=== PATIENT | male | born 1940 | race Caucasian/White ===

== ENCOUNTER → 2020-04-11 | Outpatient (CLI) | payer MEDICARE ==
[2020-04-11 10:40] LABS: BUN/CREATININE RATIO 15; CALCIUM 9.2 MG/DL (8.5-10.1); CARBON DIOXIDE 28 MMOL/L (21-32); CHLORIDE 97 MMOL/L (98-107); CREATININE SERUM 0.73 MG/DL (0.60-1.30); GFR ESTIMATED > 60; GLUCOSE 88 MG/DL (70-105); POTASSIUM 4.5 MMOL/L (3.6-5.0); SODIUM 132 MMOL/L (135-145)
== END ==
LOC: LAB FS 09:09 → EDBD 09:09
PROVIDERS: ATTEND Urology
DX: N40.1 Benign prostatic hyperplasia with lower urinary tract symptoms (principal)
CPT/HCPCS: 36415; 80048; 84153

== ENCOUNTER → 2021-04-24 | Outpatient (CLI) | payer MEDICARE ==
[2021-04-24 10:13] LABS: CALCIUM 9.6 MG/DL (8.5-10.1); CREATININE SERUM 0.74 MG/DL (0.60-1.30); POTASSIUM 4.3 MMOL/L (3.6-5.0)
== END ==
LOC: LAB FS 09:11
PROVIDERS: ATTEND Urology
DX: N40.1 Benign prostatic hyperplasia with lower urinary tract symptoms (principal); N32.81 Overactive bladder
CPT/HCPCS: 36415; 80048; 84153

== ENCOUNTER 2022-06-05 12:45 | Emergency (ER) | payer MEDICARE ==
--- NOTE | 2022-06-05 13:36 | Diagnostic Imaging Report ---
PROCEDURE: CT head and maxillofacial without contrast. TECHNIQUE: Multiple contiguous axial images were obtained through the head and facial bones without the use of intravenous contrast. Auto Exposure Controls were utilized during the CT exam to meet ALARA standards for radiation dose reduction. INDICATION: Pain in the right eye. 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 COMPARISON: None. FINDINGS: CT HEAD: The ventricles and cortical sulci are age-appropriate. There is no midline shift or mass-effect. No acute intracranial hemorrhage is seen. There is no CT evidence of acute territorial ischemia. No focal masses or collections are present. The calvarium is intact. CT FACE: No acute facial fractures are visualized. The mandible, zygomatic arches, and pterygoid plates are intact. The bilateral TMJ demonstrate normal articulation. No nasal bone fractures. The bony nasal septum is slightly deviated to the right without fracture. Frothy secretions are seen in the bilateral maxillary sinuses with additional mucosal thickening in the bilateral ethmoid and sphenoid sinuses. The mastoid air cells are well pneumatized. Post treatment changes are seen in the right globe with scleral banding and dense material throughout the globe. The left globe is unremarkable. No post septal inflammation is seen in the orbits. No evidence of orbital rim fracture. IMPRESSION: 1. No hemorrhage or focal intra-axial mass. No CT evidence of large acute territorial ischemia. 2. No acute facial fractures. 3. Findings suggestive of acute sinusitis. 4. Post treatment changes in the right globe, consistent with the history of prior retinal detachment. Dictated by: Dictated on workstation # [id number]
--- NOTE | 2022-06-05 13:47 | ED EENT ---
History of Present Illness General Chief Complaint: Eye Problems Stated Complaint: RT EYE PAIN; NAUSEA Source: patient History of Present Illness Date Seen by Provider: Jun 05, 2022 Time Seen by Provider: 13:00 Initial Comments 81-year-old male presenting by private vehicle with concerns for right-sided headache. He states that he has a chronic infection and is taking tobramycin dexamethasone eyedrops for that. He follows with Dr. Angeles with eye clinic. He has had generalized weakness and had severe pain behind his right eye that came on when he was in the shower. He did get a little bit of water and shampoo into his eye but has never had severe stabbing pain behind his eye like this. 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 He denies having any dizziness, fever, abdominal pain, diarrhea, pain with urination. He states that his mouth is always dry and he is always thirsty. He was concerned for a possible stroke with his general weakness and right sided pain behind his eyes. He had called EMS and they evaluated him and he decided not to come by ambulance but went to urgent care to be seen. They had told him he needed to come to the emergency department for CT scan as he might be having a stroke. He had tried taking 600 mg of ibuprofen and it was not helping much with his pain so again he got evaluated. He has had some chills but no fever. Timing/Duration: abrupt Severity: severe Location: eye (R) Prearrival Treatment: over the counter meds Modifying Factors: Worse With Activity Associated Symptoms: No change in hearing; cough (Chronic and intermittent from drainage down his throat); No drooling, No ear drainage; facial pain/swelling; No fever; malaise, nasal congestion/drainage; No poor fluid intake, No poor solids intake, No sinus infection, No sore throat, No tooth pain, No voice change Allergies and Home Medications Allergies Coded Allergies: No Known Drug Allergies (Unverified , 06/05/22) Patient Home Medication List Home Medication List Reviewed: Yes Amoxicillin/Potassium Clav (Amox Tr-K Clv 875-125 mg Tab) 875 Mg-125 Mg Tablet, 1 EACH PO BID Prescribed by: SHA IBRAHIM on 06/05/22 1430 Prednisone (Prednisone) 20 Mg Tab, 40 MG PO DAILY Prescribed by: SHA IBRAHIM on 06/05/22 1430 Review of Systems Review of Systems Constitutional: chills; No fever Eyes: See HPI Ears: Denies Dizziness, Denies Pain Nose: congestion Mouth: no symptoms reported Throat: no symptoms reported Respiratory: see HPI Cardiovascular: no symptoms reported Gastrointestinal: see HPI Musculoskeletal: no symptoms reported Skin: no symptoms reported Neurological: Headache (Behind right eye and over the right frontal sinus) Past Zwlkwwh-Iwajdy-Lsajci Hx Patient Social History Tobacco Use?: No Use of E-Cig and/or Vaping dev: No Substance use?: No Alcohol Use?: No Pt feels they are or have been: No Immunizations Up To Date Influenza Vaccine Up-to-Date: Yes; Up-to-Date First/Initial COVID19 Vaccinat: YES Second COVID19 Vaccination [place]: YES Past Medical History Surgery/Hospitalization HX: HTN; High Cholesterol; 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 oz. 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, no motor/sensory deficits, alert, oriented x 3 Skin: normal color, warm/dry Progress/Results/Core Measures Results/Orders Lab Results Laboratory Tests Test 06/05/22 13:05 06/05/22 13:09 Range/Units Urine Color YELLOW Urine Clarity CLEAR Urine pH 7.5 5-9 Urine Specific [place] 1.015 L 1.016-1.022 Urine Protein NEGATIVE NEGATIVE Urine Glucose (UA) TRACE H NEGATIVE Urine Ketones NEGATIVE NEGATIVE Urine Nitrite NEGATIVE NEGATIVE Urine Bilirubin NEGATIVE NEGATIVE Urine Urobilinogen 0.2 < = 1.0 MG/DL Urine Leukocyte Esterase NEGATIVE NEGATIVE Urine RBC (Auto) NEGATIVE NEGATIVE Urine RBC NONE /HPF Urine WBC NONE /HPF Urine Squamous Epithelial Cells RARE /HPF Urine Crystals PRESENT H /LPF Urine Amorphous Sediment FEW CANDIS PHOSPHATE H /LPF Urine Bacteria NEGATIVE /HPF Urine Casts NONE /LPF Urine Mucus NEGATIVE /LPF Urine Culture Indicated NO White Blood Count 10.9 4.3-11.0 10^3/uL Red Blood Count 4.03 L 4.30-5.52 10^6/uL Hemoglobin 12.8 L 13.3-17.7 g/dL Hematocrit 36 L 40-54 % Mean Corpuscular Volume 90 80-99 fL Mean Corpuscular Hemoglobin 32 25-34 pg Mean Corpuscular Hemoglobin Concent 36 32-36 g/dL Red Cell Distribution Width 12.2 10.0-14.5 % Platelet Count 267 130-400 10^3/uL Mean Platelet Volume 9.8 9.0-12.2 fL Immature Granulocyte % (Auto) 0 % Neutrophils (%) (Auto) 88 H 42-75 % Lymphocytes (%) (Auto) 6 L 12-44 % Monocytes (%) (Auto) 6 0-12 % Eosinophils (%) (Auto) 0 0-10 % Basophils (%) (Auto) 0 0-10 % Neutrophils # (Auto) 9.6 H 1.8-7.8 10^3/uL Lymphocytes # (Auto) 0.6 L 1.0-4.0 10^3/uL Monocytes # (Auto) 0.6 0.0-1.0 10^3/uL Eosinophils # (Auto) 0.0 0.0-0.3 10^3/uL Basophils # (Auto) 0.0 0.0-0.1 10^3/uL Immature Granulocyte # (Auto) 0.0 0.0-0.1 10^3/uL Neutrophils % (Manual) 92 % Lymphocytes % (Manual) 6 % Monocytes % (Manual) 2 % Eosinophils % (Manual) 0 % Basophils % (Manual) 0 % Band Neutrophils 0 % Sodium Level 126 L 135-145 MMOL/L Potassium Level 3.5 L 3.6-5.0 MMOL/L Chloride Level 90 L 98-107 MMOL/L Carbon Dioxide Level 25 21-32 MMOL/L Anion Gap 11 5-14 MMOL/L Blood Urea Nitrogen 10 7-18 MG/DL Creatinine 0.66 0.60-1.30 MG/DL Estimat Glomerular Filtration Rate 94 BUN/Creatinine Ratio 15 Glucose Level 163 H 70-105 MG/DL Lactic Acid Level 1.17 0.50-2.00 MMOL/L Calcium Level 9.6 8.5-10.1 MG/DL Corrected Calcium 9.4 8.5-10.1 MG/DL Total Bilirubin 0.6 0.1-1.0 MG/DL Aspartate Amino Transf (AST/SGOT) 29 5-34 U/L Alanine Aminotransferase (ALT/SGPT) 23 0-55 U/L Alkaline Phosphatase 66 40-136 U/L C-Reactive Protein < 0.30 <0.50 MG/DL Total Protein 7.4 6.4-8.2 GM/DL Albumin 4.3 3.2-4.5 GM/DL My Orders Orders - SHA IBRAHIM MD Ct Head/Maxillofacial Wo (06/05/22 13:00) Cbc With Automated Diff (06/05/22 13:47) Comprehensive Metabolic Panel (06/05/22 13:47) Blood Culture (06/05/22 13:47) Ua Culture If Indicated (06/05/22 13:47) Ed Iv/Invasive Line Start (06/05/22 13:47) Crp Fs (06/05/22 13:47) Lactic Acid Analyzer (06/05/22 13:47) Manual Differential (06/05/22 13:09) Ceftriaxone 1 Gm Pre-Mix (Rocephin 1 Gm (06/05/22 14:00) Fentanyl Inj (Sublimaze Injection) (06/05/22 14:00) Ketorolac Injection (Toradol Injection) (06/05/22 14:00) Vital Signs/I&O 06/05/22 06/05/22 13:00 14:40 Temp 36.7 36.7 Pulse 92 92 Resp 16 16 B/P (MAP) 167/80 (109) 153/75 Pulse Ox 99 99 O2 Delivery Room Air Room Air Progress Progress Note #1: Progress Note Potential intracranial hemorrhage, stroke, mass, retrobulbar hemorrhage, sinusitis, trigeminal neuralgia. Patient had severe pain that was sharp earlier this morning but now it is just more of a pressure and aching in his right eyebrow area and behind his eye. He will have CT scan of the head and face ordered without contrast to evaluate for potential hemorrhage, mass, tumor, stroke. Ordered basic labs a CBC, chemistry, blood cultures with a lactic acid, urinalysis. Since he was complaining of chills and general weakness will evaluate for possible sepsis or infection. Progress Note #2: Time: 13:27 Progress Note On my personal interpretation and review of his CT scan of head and face without contrast he did not have acute hemorrhage or mass. 1345 I reviewed radiologist report and they saw sinusitis in ethmoid and sphenoid sinuses with frothy mucus. No mass, intracranial hemorrhage or signs of stroke. Post op changes to right eye. I updated patient on findings and awaiting labs to come back. With him still having pain in right eyebrow area will give Fentanyl 50 mcg IV for pain along with Toradol 15 mg IV and for sinusitis give Rocephin 1 gm IV. Progress Note #3: Progress Note Lab shows WBC count at upper limit of normal at 10.9. He does have a left shift. His hemoglobin was borderline low at 12.8. He had normal platelets. On his chemistry panel he had sodium of 126 which compared to April 2021 when he was 130 was not that different. As he had stated that he drinks a lot of water all the time because his mouth is always dry this could be contributing to his low sodiums. Both counseled on trying to fluid restrict and follow-up with the clinic. His urinalysis did not show infection and he had a specific gravity of 1.015. The lactic acid was normal at 1.17. His CRP was not elevated at less than 0.3. Updated patient about the findings and recommendations for fluid restriction. He reports that his pain was doing better after getting the medication here in the ED. Counseled to take the full course of antibiotics for the sinusitis as well as a brief 3-day steroid burst to try and help with pressure and pain. He may still take [id number] acetaminophen and ibuprofen if needed for pain. Check back through the clinic if having continued pain and not improving with the medicine as well as the should have his sodium level rechecked after he has had a chance to try and fluid restrict. Counseled to drink less than 2 L or 64 ounces of water in a day. Sent prescriptions for Augmentin 875 twice daily x7 days for sinusitis and prednisone 20 mg to take 2 pills or 40 mg daily for 3 days. Diagnostic Imaging Diagonstic Imaging: CT Plain Films/CT/US/NM/MRI: facial bones, head Comments NAME: ADRIANE BOTELLO [facility] REC#: [id number] PT STATUS: REG ER : 1940 PHYSICIAN: SHA IBRAHIM MD ADMIT DATE: 06/05/22/ER FS Draft Date of Exam:06/05/22 CT HEAD/MAXILLOFACIAL WO PROCEDURE: CT head and maxillofacial without contrast. TECHNIQUE: Multiple contiguous axial images were obtained through the head and facial bones without the use of intravenous contrast. Auto Exposure Controls were utilized during the CT exam to meet ALARA standards for radiation dose reduction. INDICATION: Pain in the right eye. 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 COMPARISON: None. FINDINGS: CT HEAD: The ventricles and cortical sulci are age-appropriate. There is no midline shift or mass-effect. No acute intracranial hemorrhage is seen. There is no CT evidence of acute territorial ischemia. No focal masses or collections are present. The calvarium is intact. CT FACE: No acute facial fractures are visualized. The mandible, zygomatic arches, and pterygoid plates are intact. The bilateral TMJ demonstrate normal articulation. No nasal bone fractures. The bony nasal septum is slightly deviated to the right without fracture. Frothy secretions are seen in the bilateral maxillary sinuses with additional mucosal thickening in the bilateral ethmoid and sphenoid sinuses. The mastoid air cells are well pneumatized. Post treatment changes are seen in the right globe with scleral banding and dense material throughout the globe. The left globe is unremarkable. No post septal inflammation is seen in the orbits. No evidence of orbital rim fracture. IMPRESSION: 1. No hemorrhage or focal intra-axial mass. No CT evidence of large acute territorial ischemia. 2. No acute facial fractures. 3. Findings suggestive of acute sinusitis. 4. Post treatment changes in the right globe, consistent with the history of prior retinal detachment. Dictated on workstation # [id number] Dict: 06/05/22 1329 Trans: 06/05/22 1335 [id number] Interpreted by: MEHDI REYES DO Electronically signed by: Departure Impression Primary Impression: Acute non-recurrent ethmoidal sinusitis Additional Impressions: Acute non-recurrent sphenoidal sinusitis History of chronic eye infection Chronic hyponatremia Disposition: HOME, SELF-CARE Condition: Stable Departure-Patient Inst. Decision time for Depature: 14:15 Referrals: NIDA BULL APRN (PCP) Primary Care Physician [facility] (Family) Primary Care Physician Patient Instructions: Sinusitis, Adult ED, Hyponatremia (DC) Add. Discharge Instructions: Your tests do not show signs of a stroke or bleeding into your brain. You do have sinusitis that can be causing you to have a lot of pressure and pain in the face and around the eyes. The Ceftriaxone (Rocephin) antibiotic given in your IV will help start treatment for your sinusitis. Continue with oral antibiotics to treat for the infection in the sinuses. Follow up with primary care clinic next week if you are not doing better from the antibiotics. Take short course of steroids to help with pain in addition to using over the counter acetaminophen and ibuprofen to help with your pain. Your sodium in your blood is chronically low. This could be due to drinking too much water. Try to limit your water intake to under 2 Liters and follow up with your doctor for recheck of sodium and labs this next week. Your sodium was 126 today and was 130 a year ago. Normal values would be 135- 145. All discharge instructions reviewed with patient and/or family. Voiced understanding. Scripts Amoxicillin/Potassium Clav (Amox Tr-K Clv 875-125 mg Tab) 875 Mg-125 Mg Tablet 1 EACH PO BID for sinusitis for 7 Days, #14 TAB 0 Refills Prov: SHA IBRAHIM MD 06/05/22 Prednisone (Prednisone) 20 Mg Tab 40 MG PO DAILY for sinusitis/sinus pain for 3 Days, #6 TAB 0 Refills Prov: SHA IBRAHIM MD 06/05/22 SHA IBRAHIM MD Jun 05, 2022 13:47
[2022-06-05 13:56] LABS: BILIRUBIN,URINE NEGATIVE (NEGATIVE); CLARITY,URINE CLEAR; COLOR,URINE YELLOW; GLUCOSE, URINE (UA) TRACE (NEGATIVE); KETONES,URINE NEGATIVE (NEGATIVE); LEUKOCYTE ESTERASE ,URINE NEGATIVE (NEGATIVE); NITRITE,URINE NEGATIVE (NEGATIVE); PH,URINE 7.5 (5-9); PROTEIN,URINE NEGATIVE (NEGATIVE)
[2022-06-05 13:56] LABS: BASOPHILS % (AUTO) 0 % (0-10); EOSINOPHILS % (AUTO) 0 % (0-10); HEMATOCRIT 36 % (40-54); HEMOGLOBIN 12.8 g/dL (13.3-17.7); LYMPHOCYTES # (AUTO) 0.6 10^3/uL (1.0-4.0); LYMPHOCYTES % (AUTO) 6 % (12-44); MEAN CORPUSCULAR HEMOGLOBIN 32 pg (25-34); MEAN CORPUSCULAR HGB CONC 36 g/dL (32-36); MEAN CORPUSCULAR VOLUME 90 fL (80-99); MEAN PLATELET VOLUME 9.8 fL (9.0-12.2); MONOCYTES # (AUTO) 0.6 10^3/uL (0.0-1.0); MONOCYTES % (AUTO) 6 % (0-12); NEUTROPHILS # (AUTO) 9.6 10^3/uL (1.8-7.8); NEUTROPHILS % (AUTO) 88 % (42-75); PLATELET COUNT 267 10^3/uL (130-400); WHITE BLOOD COUNT 10.9 10^3/uL (4.3-11.0)
[2022-06-05] MEDS ORDERED: KETOROLAC 15 MG/ML VIAL IVP STA (14:00)
[2022-06-05] MEDS ORDERED: cefTRIAXone 1 GM PRE-MIX 50 ML IV STA (14:00)
[2022-06-05] MEDS ORDERED: fentaNYL INJ 100 MCG/2 ML AMP IVP STA (14:00)
[2022-06-05 14:02] LABS: AMORPHOUS SEDIMENT,UR FEW AMOR PHOSPHATE /LPF; BACTERIA,URINE NEGATIVE /HPF; SQUAMOUS EPITHELIAL CELL,UR RARE /HPF
[2022-06-05 14:13] LABS: CALCIUM 9.6 MG/DL (8.5-10.1); CREATININE SERUM 0.66 MG/DL (0.60-1.30); POTASSIUM 3.5 MMOL/L (3.6-5.0)
[2022-06-05 14:14] LABS: ALBUMIN 4.3 GM/DL (3.2-4.5); BILIRUBIN,TOTAL 0.6 MG/DL (0.1-1.0); TOTAL PROTEIN 7.4 GM/DL (6.4-8.2)
[2022-06-05 14:22] LABS: BAND NEUTROPHILS 0 %; BASOPHILS % (MANUAL) 0 %; EOSINOPHILS % (MANUAL) 0 %; LYMPHOCYTES % (MANUAL) 6 %; MONOCYTES % (MANUAL) 2 %; NEUTROPHILS % (MANUAL) 92 %
[2022-06-05] MEDS ORDERED: AMOX1TAB12 PO (14:30)
[2022-06-05] MEDS ORDERED: PRD20T PO (14:30)
[2022-06-05 14:40] VITALS: BP 153/75
== END 2022-06-05 14:53 | disposition home or self-care (01) ==
LOC: EDUNIT# 12:45 → ER FS 12:53
DX: J01.20 Acute ethmoidal sinusitis, unspecified (principal); J01.30 Acute sphenoidal sinusitis, unspecified; E87.1 Hypo-osmolality and hyponatremia; H54.40 Blindness, one eye, unspecified eye; Z86.69 Personal history of other diseases of the nervous system and sense organs
CPT/HCPCS: 36415; 70450; 70486; 80053; 81000; 83605; 85007; 85027; 86141; 87040

== ENCOUNTER → 2022-07-21 | Outpatient (CLI) | payer MEDICARE ==
[~2022-07-21] MED LIST: AMOX1TAB12 PO; PRD20T PO
== END ==
LOC: CARDFS 13:48
PROVIDERS: ATTEND Internal Medicine Cardiovascular Disease
DX: I25.10 Atherosclerotic heart disease of native coronary artery without angina pectoris (principal); I34.0 Nonrheumatic mitral (valve) insufficiency; I11.9 Hypertensive heart disease without heart failure
CPT/HCPCS: 93306